=== PATIENT | male | born 2005 | race Caucasian/White ===

== ENCOUNTER 2024-08-11 11:15 | Emergency (ER) | payer OTHER, SELFPAY ==
[2024-08-11 12:16] VITALS: BP 119/70; PULSE 75; RESP 17; TEMP 37.1; O2SAT 100
--- NOTE | 2024-08-11 12:31 | ED.WOUNDLAC ---
HPI - Wound/Laceration General Chief Complaint: Wound/Laceration Stated Complaint: Rt hand laceration Time Seen by Provider: 08/11/24 12:25 Source: patient, RN notes reviewed and old records reviewed Mode of arrival: ambulatory Limitations: no limitations History of Present Illness HPI narrative: 19-year-old male to [facility] with complaint of crushing injury to right pinky. Patient states that while he was working his finger was closed in the door of a dump truck. Bleeding controlled upon arrival. Patient calm and cooperative in exam room. Related Data Home Medications Medication Instructions Recorded Confirmed No Home Medications 08/11/24 08/11/24 Allergies Allergy/AdvReac Type Severity Reaction Status Date / Time No Known Allergies Allergy Verified 08/11/24 12:23 Review of Systems Review of Systems: All systems reviewed & are unremarkable except as noted in HPI and below Constitutional: Constitutional: Reports no additional constitutional complaints Eyes: Eyes: Reports no additional eye complaints ENT: Reports system reviewed and no additional complaints, except as documented Cardiovascular: Cardiovascular: Reports no additional cardiovascular complaints, Denies chest pain and Denies dyspnea Respiratory: Respiratory: Reports no additional respiratory complaints, Denies cough and Denies dyspnea Musculoskeletal: Musculoskeletal: Reports no additional musculoskeletal complaints Integumentary/Breasts: Skin/Breast: Reports as per HPI and Reports wounds Neurologic: Reports system reviewed and no additional complaints, except as documented Comments: Injury and pain to distal 5th digit of right hand Psychiatric: Psychiatric: Reports no additional psychiatric complaints PMFSH Comments At the time of my signature, I reviewed and agree with the nursing past medical, surgical, social, and family history. There is no relevant family history pertinent to the patient complaint. Exam Const: General: cooperative, healthy appearing, no acute distress, well developed, alert, anxious, uncomfortable and well nourished Nutritional Appearance: well nourished Orientation/consciousness: patient oriented x3 Limitations: no limitations HENMT: Head: normal to inspection Ears: external ears normal Face/Nose/Sinus: Normal external nose present, Normal nares present, normal facial exam, No erythema and No edema Face and sinus: normal facial exam, no erythema and no edema Mouth: Yes Normal oral and palatal mucosa present Eyes: General: appearance normal, both eyes and all related structures Neck: Neck: normal visual inspection, full ROM and no meningeal signs Chest: Chest palpation & inspection: normal inspection of the chest Resp: Effort & Inspection: normal respiratory effort and able to speak in complete sentences Cardio: Jugular venous distension: no JVD Rate: regular rate Back/Spine/Pelvis: Cervical Spine: cervical ROM normal Skin: General skin exam: normal color and wounds noted Wounds: 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 Level of Care: Express Care Visit Vital Signs Vital signs: Vital Signs Temperature 37.1 C 08/11/24 12:16 Pulse Rate 75 08/11/24 12:16 Respiratory Rate 17 08/11/24 12:16 Blood Pressure 119/70 08/11/24 12:16 Pulse Oximetry 100 08/11/24 12:16 Oxygen Delivery Room Air 08/11/24 12:16 Temperature 37.1 C 08/11/24 12:16 Pulse Rate 75 08/11/24 12:16 Respiratory Rate 17
[2024-08-11] MEDS: TETANUS,DIPHTHERIA,AC PERTUSSIS ADULT (0.5 ML) BOOSTRIX IM (12:37)
[2024-08-11] MEDS: IBUPROFEN 400 MG TABLET PO (12:45)
[2024-08-11] MEDS: ACETAMINOPHEN 500 MG TABLET 1000 MG PO (12:45)
== END 2024-08-11 12:55 | disposition short-term general hospital (02) ==
PROVIDERS: Emergency Provider Nurse Practitioner Family
DX: S68.627A Partial traumatic transphalangeal amputation of left little finger, initial encounter (principal); V85.9XXA Unspecified occupant of special construction vehicle injured in nontraffic accident, initial encounter; Y99.0 Civilian activity done for income or pay; Z23 Encounter for immunization
CPT/HCPCS: 90471; 90715; 99212; A9270; G0463